=== PATIENT | female | born 1985 | race Caucasian/White ===

== ENCOUNTER 2018-08-23 14:00 | Emergency (ER) | payer OTHER ==
[2018-08-23 14:44] LABS: GLUCOSE, URINE (UA) NEGATIVE (NEGATIVE); KETONES,URINE (UA) 15 mg/dL (NEGATIVE); LEUKOCYTE ESTERASE, URINE SMALL (NEGATIVE); NITRITE,URINE NEGATIVE (NEGATIVE); OCCULT BLOOD,URINE NEGATIVE (NEGATIVE); PROTEIN,URINE NEGATIVE (NEGATIVE); UROBILINOGEN,URINE 0.2 (NORMAL) E.U./dL (NORMAL)
[2018-08-23 14:47] LABS: BILIRUBIN,URINE NEGATIVE (NEGATIVE); CLARITY,URINE HAZY (CLEAR); HCG UR QUAL NEGATIVE; ICTOTEST,URINE NEGATIVE
[2018-08-23 14:58] LABS: BACTERIA,URINE Many /HPF (None Seen); MUCUS,URINE Moderate Strands; RBC,URINE 0-5 /HPF (0-5); SQUAMOUS EPITHELIAL CELL,UR MANY Squamous (<= Few)
[2018-08-23] MEDS ORDERED: KETOROLAC 15 MG/ML VIAL IVP STA (15:47)
[2018-08-23] MEDS ORDERED: SODIUM CHLORIDE 0.9% 1,000 ML IV ONE (15:47)
[2018-08-23] MEDS ORDERED: ONDANSETRON 4 MG/2 ML VIAL IVP STA (15:47)
[2018-08-23 16:10] LABS: BASOPHILS % (AUTO) 0.5 %; EOSINOPHILS # (AUTO) 0.3 10^3/uL (0.0-0.7); EOSINOPHILS % (AUTO) 4.1 %; LYMPHOCYTES # (AUTO) 3.3 10^3/uL (1.5-3.5); LYMPHOCYTES % (AUTO) 39.8 %; MEAN CORPUSCULAR HEMOGLOBIN 34.5 pg (27.0-31.0); MEAN CORPUSCULAR HGB CONC 34.2 g/dL (32.0-36.0); MEAN CORPUSCULAR VOLUME 101.1 fL (81.0-99.0); MEAN PLATELET VOLUME 7.9 fL (7.9-10.8); MONOCYTES # (AUTO) 0.4 10^3/uL (0.0-1.0); MONOCYTES % (AUTO) 4.9 %; NEUTROPHILS # (AUTO) 4.2 10^3/uL (1.5-6.6); NEUTROPHILS % (AUTO) 50.7 %; PLT - PLATELET COUNT 234 10^3/uL (130-450); RED BLOOD COUNT 4.33 10^6/uL (4.20-5.40); RED CELL DISTRIBUTION WIDTH 12.5 % (12.0-15.0); WHITE BLOOD COUNT 8.3 x10^3/uL (4.8-10.8)
[2018-08-23] MEDS ORDERED: IOPAMIDOL-300 100 ML VIAL ONE (16:12)
[2018-08-23 16:25] LABS: ALBUMIN 4.8 g/dL (3.2-5.5); ALBUMIN/GLOBULIN RATIO 1.5 (1.0-2.2); BILIRUBIN,TOTAL 0.6 mg/dL (0.2-1.0); CALCIUM 9.5 mg/dL (8.5-10.3); CREATININE 0.6 mg/dL (0.4-1.0)
--- NOTE | 2018-08-23 16:44 | ED Physician Documentation ---
PD HPI ABD PAIN - Stated complaint Stated Complaint: AB/LOW BACK PX - Chief complaint Chief Complaint: Abd Pain - Additional information Additional information: 33-year-old female presents the emergency department with complaints of sharp crampy lower abdominal pain which started early this morning. The pain radiates into her back. There is no localized area of pain. The patient denies upper abdominal pain. The patient denies nausea, vomiting, dysuria, flank pain, vaginal discharge or vaginal bleeding. Symptoms are described as moderate. No other associated symptoms. No triggering factors. No relieving factors Review of Systems Constitutional: denies: Fever, Chills, Fatigue Eyes: denies: Discharge Ears: denies: Ear pain Nose: denies: Congestion Throat: denies: Sore throat Cardiac: denies: Chest pain / pressure Respiratory: denies: Dyspnea GI: reports: Abdominal Pain. denies: Vomiting, Diarrhea : denies: Dysuria Skin: denies: Rash Musculoskeletal: denies: Neck pain Neurologic: denies: Generalized weakness Psychiatric: denies: Depressed PD PAST MEDICAL HISTORY - Present Medications Home Medications: Ambulatory Orders Medication Instructions Recorded Confirmed Ondansetron HCl [Zofran] 4 mg PO Q6HR PRN #30 tablet 08/23/18 - Allergies Allergies/Adverse Reactions: Allergies Allergy/AdvReac Type Severity Reaction Status Date / Time No Known Drug Allergies Allergy Verified 08/23/18 14:14 PD ED PE NORMAL - General General: Alert and oriented X 3, No acute distress - HEENT HEENT: Atraumatic, PERRL, EOMI, Ears normal, Pharynx benign - Cardiac Cardiac: RRR, Strong equal pulses - Respiratory Respiratory: No respiratory distress - Abdomen Abdomen: Soft, Non distended, Other (Tenderness palpation in the lower abdomen, there is no rebound or peritoneal signs) - Derm Derm: Normal color - Extremities Extremities: No deformity - Neuro Neuro: Alert and oriented X 3, Normal speech - Psych Psych: Normal affect Results - Vitals Vitals: Vital Signs - 24 hr 08/23/18 14:14 Temperature 36.8 C Heart Rate 76 Respiratory 16 Rate Blood Pressure 121/89 H O2 Saturation 99 Oxygen O2 Source Room air - Labs Labs: Laboratory Tests 08/23/18 08/23/18 08/23/18 14:22 15:58 15:58 WBC 8.3 RBC 4.33 Hgb 15.0 Hct 43.8 MCV 101.1 H MCH 34.5 H MCHC 34.2 RDW 12.5 Plt Count 234 MPV 7.9 Neut # (Auto) 4.2 Lymph # (Auto) 3.3 [place] # (Auto) 0.4 Eos # (Auto) 0.3 Baso # (Auto) 0.0 Absolute Nucleated RBC 0.00 Nucleated RBC % 0.0 Sodium 138 Potassium 3.7 Chloride 105 Carbon Dioxide 23 Anion Gap 10.0 BUN 11 Creatinine 0.6 Estimated GFR (MDRD) 114 Glucose 81 Calcium 9.5 Total Bilirubin 0.6 AST 17 ALT 18 Alkaline Phosphatase 32 L Total Protein 8.0 Albumin 4.8 Globulin 3.2 Albumin/Globulin Ratio 1.5 Lipase 36 Urine Color YELLOW Urine Clarity HAZY Urine pH 6.0 Ur Specific [place] >=1.030 H Urine Protein NEGATIVE Urine Glucose (UA) NEGATIVE Urine Ketones 15 H Urine Occult Blood NEGATIVE Urine Nitrite NEGATIVE Urine Bilirubin NEGATIVE Urine Urobilinogen 0.2 (NORMAL) Ur Leukocyte Esterase SMALL H Urine RBC 0-5 Urine WBC 4-5 Ur Squamous Epith Cells MANY Squamous H Urine Bacteria Many H Urine Mucus Moderate Strands Ur Microscopic Review INDICATED Urine Culture Comments NOT INDICATED Urine HCG, Qual NEGATIVE - Rads (name of study) US pelvic Radiology: Final report received, See rad report (IMPRESSION: 1. Negative contrast-enhanced CT of the abdomen and pelvis. No acute solid or hollow viscus organ abnormalities to account for the patient's presentation. 2. There is a small enhancing focus within segment 7 of the liver (image 11 series 3). This could represent a flash filling hemangioma. 3. There is right nephrolithiasis. No evidence of obstructing stone or hydronephrosis. ) PD MEDICAL DECISION MAKING - ED course ED course: On reevaluation the patient is resting comfortably and appears to be in no acute distress. Presently the patient appears appropriate for discharge with reevaluation as an outpatient. I recommended returning for any worsening or any concerns. Departure - Departure Disposition: 01 Home, Self Care Clinical Impression: Kidney stone, Liver hemangioma Abdominal pain Qualifiers: Abdominal location: unspecified location Qualified Code(s): R10.9 - Unspecified abdominal pain Condition: Good Instructions: Abdominal Pain, ED Stone Kidney Undescended No Sx Follow-Up: Sandra Hoang PA-C [Primary Care Provider] - Within 1 week Prescriptions: Ondansetron HCl [Zofran] 4 mg PO Q6HR PRN #30 tablet PRN Reason: Nausea / Vomiting Comments: Please return to the emergency department for worsening symptoms or any concerns
[2018-08-23] MEDS ORDERED: IOPAMIDOL-300 100 ML VIAL IVP ONE (16:58)
--- NOTE | 2018-08-23 17:32 | CT Report ---
Reason: lower abdominal pain Procedure Date: 08/23/2018 Accession Number: [id number] / [id number] Procedure: CT - Abdomen/Pelvis W CPT Code: FULL RESULT: EXAM: CT ABDOMEN AND PELVIS EXAM DATE: 08/23/2018 04:57 PM. CLINICAL HISTORY: Lower abdominal pain. COMPARISONS: None. TECHNIQUE: Routine helical CT imaging was performed through the abdomen and pelvis. IV contrast: ISOVUE 300 100mL. Enteric contrast: No. Reconstructions: Coronal and sagittal. In accordance with CT protocol optimization, one or more of the following dose reduction techniques were utilized for this exam: automated exposure control, adjustment of mA and/or KV based on patient size, or use of iterative reconstructive technique. FINDINGS: Lung Bases: Unremarkable. Liver: There is a small enhancing lesion within segment 7 of the liver. This probably represents a flash filling hemangioma. Gallbladder/Bile Ducts: Unremarkable. Spleen: Normal. Pancreas: Normal. Adrenal Glands: Normal. Kidneys: There is a small nonobstructing stone within the right kidney. There is no evidence of distal obstructing stone or hydronephrosis. Peritoneal Cavity/Bowel: No dilated or thick-walled bowel is seen. No intraperitoneal free air. There is trace free fluid within the pelvis. No enlarged mesenteric or retroperitoneal lymph nodes. The appendix is not definitely seen. There is no evidence of pericecal inflammation to indicate presence of acute appendicitis. Pelvic Organs: Normal. The bladder and visualized pelvic organs are within normal limits. Vasculature: No aneurysms or other significant abnormality. Bones: No significant abnormality. Other: None. IMPRESSION: 1. Negative contrast-enhanced CT of the abdomen and pelvis. No acute solid or hollow viscus organ abnormalities to account for the patient's presentation. 2. There is a small enhancing focus within segment 7 of the liver (image 11 series 3). This could represent a flash filling hemangioma. 3. There is right nephrolithiasis. No evidence of obstructing stone or hydronephrosis. RADIA
[2018-08-23 18:02] VITALS: BP 132/75
== END 2018-08-23 18:01 | disposition home or self-care (01) ==
LOC: ED 14:00
DX: N20.0 Calculus of kidney (principal); D18.03 Hemangioma of intra-abdominal structures; R10.30 Lower abdominal pain, unspecified
CPT/HCPCS: 36415; 74177; 80053; 81001; 81025; 83690; 85025; 96360; 96361; 99283; Q9967; 81003; 87086

== ENCOUNTER 2021-06-14 08:00 | Outpatient (CLI) | payer OTHER | END 2021-06-14 23:59 | LOC: LAB.N 08:00 | PROVIDERS: ATTEND Family Medicine | DX: U07.1 COVID-19 (principal) ==

== ENCOUNTER 2021-10-04 16:03 | Outpatient (CLI) | payer OTHER ==
[2021-10-04 16:21] LABS: HCT - HEMATOCRIT 45.5 % (37.0-47.0); HGB - HEMOGLOBIN 15.5 g/dL (12.0-16.0); MEAN CORPUSCULAR HEMOGLOBIN 35.3 pg (27.0-31.0); MEAN CORPUSCULAR HGB CONC 34.1 g/dL (32.0-36.0); MEAN CORPUSCULAR VOLUME 103.6 fL (81.0-99.0); MEAN PLATELET VOLUME 9.6 fL (7.9-10.8); NEUTROPHILS # (AUTO) 2.8 10^3/uL (1.5-6.6); NEUTROPHILS % (AUTO) 33.7 %; RED BLOOD COUNT 4.39 10^6/uL (4.20-5.40); RED CELL DISTRIBUTION WIDTH 12.3 % (12.0-15.0); WHITE BLOOD COUNT 8.4 x10^3/uL (4.8-10.8)
[2021-10-04 16:29] LABS: ALBUMIN 4.5 g/dL (3.2-5.5); ALBUMIN/GLOBULIN RATIO 1.4 (1.0-2.2); BILIRUBIN,TOTAL 0.4 mg/dL (0.2-1.0); CALCIUM 9.5 mg/dL (8.5-10.3); CREATININE 0.5 mg/dL (0.4-1.0); TOTAL PROTEIN 7.8 g/dL (6.7-8.2)
== END 2021-10-04 16:04 | disposition home or self-care (01) ==
LOC: LAB 16:03
PROVIDERS: ATTEND Internal Medicine Hematology & Oncology
DX: C50.919 Malignant neoplasm of unspecified site of unspecified female breast (principal)
CPT/HCPCS: 36415; 80053; 85027; 86300

== ENCOUNTER 2021-10-17 08:32 | Day surgery (SDC) | payer OTHER ==
[2021-10-17] MEDS ORDERED: CEFAZOLIN SODIUM IN 0.9 % NACL 2 GM/50 ML BAG IV ONE (08:47)
[2021-10-17] MEDS ORDERED: LACTATED RINGERS 1,000 ML IV ONE ×2 (08:59→10:42)
[2021-10-17 09:02] LABS: HCG UR QUAL NEGATIVE
[2021-10-17] MEDS ORDERED: PROPOFOL 500 MG/50 ML 500 MG/50 ML VIAL ONE (09:34)
[2021-10-17] MEDS ORDERED: MIDAZOLAM 2 MG/2 ML VIAL ONE (09:34)
--- NOTE | 2021-10-17 09:39 | ANESTHESIA ---
Pre-Anesthesia VS, & Labs - Diagnosis left breast cancer - Procedure portacath placement Vital Signs: Temp Pulse Resp BP Pulse Ox 36.8 C 90 16 121/79 100 10/17/21 08:48 10/17/21 08:48 10/17/21 08:48 10/17/21 08:48 10/17/21 08:48 Height: 5 ft 6 in Weight (kg): 63.2 kg Body Mass Index: 22.4 BMI Classification: Healthy weight - NPO >8 hours - Is Patient ?: No Home Medications and Allergies Home Medications: Ambulatory Orders [place] 1 tab PO DAILY 10/12/21 [place] 1 tab PO DAILY 10/12/21 Allergies/Adverse Reactions: Allergies Allergy/AdvReac Type Severity Reaction Status Date / Time No Known Drug Allergies Allergy Verified 08/23/18 14:14 Anes History & Medical History - Anesthetic History Anesthesia Complications: reports: No previous complications - Medical History Cardiovascular: reports: None Pulmonary: reports: None Gastrointestinal: reports: None Urinary: reports: None Musculoskeletal: reports: None Endocrine/Autoimmune: reports: None Skin: reports: None Smoking Status: Light tobacco smoker (cigars) History of Cancer?: Yes - Surgical History Eyes Ears Nose Throat (EENT): reports: Other (sinus surgery several years ago) Exam General: Alert, Oriented x3, Cooperative Dental: WNL Mouth Opening: Greater than 4 Fingerbreadths Neck Mobility: Normal Mallampati classification: II Thyromental Distance: greater than 6 cm Respiratory: Lungs clear Cardiovascular: Regular rate, Normal S1, Normal S2 Plan Anesthesia Type: General, Total IV Consent for Procedure(s) Verified and Reviewed: Yes Code Status: Attempt Resuscitation ASA classification: 2-Mild systemic disease Is this case an emergency?: No
[2021-10-17] MEDS ORDERED: LIDOCAINE 2%-EPI 1:100000 20 ML MDV ONE (09:42)
[2021-10-17] MEDS ORDERED: BUPIVACAINE 0.25% PF 10 ML VIAL ONE (09:42)
[2021-10-17] MEDS ORDERED: fentaNYL 100 MCG/2 ML VIAL ONE (09:56)
[2021-10-17] MEDS ORDERED: LIDOCAINE 2%-EPI 1:100000 20 ML MDV SUBQ ONE (10:29)
[2021-10-17] MEDS ORDERED: BUPIVACAINE 0.25% PF 30 ML VIAL SUBQ ONE (10:29)
--- NOTE | 2021-10-17 10:34 | OPERATIVE REPORT ---
Operative Report - General Procedure Date: 10/17/21 Planned Procedure: Right subclavian power port placement Pre-Op Diagnosis: Left breast cancer Procedure Performed: Right subclavian PowerPort placement Post Op Diagnosis: Left breast cancer - Procedure Note Primary Surgeon: Manuel Anesthesia Provider: GLORIA Erazo Anesthesia Technique: Local, MAC Pathology: None Estimated Blood Loss (mL): 5 Findings: Port in good position Complications: None apparent - Other Other Information/Narrative: After obtaining informed consent, the patient is brought to the operating room and placed in supine position on the operating table. Following successful induction of sedation with monitored anesthesia care and appropriate padding of all bony prominences, the left chest and neck were prepped and draped in the standard surgical fashion. A timeout was held per scope protocol. All elements of the surgical safety checklist were followed before, during, and after the procedure. Following infiltration with local anesthetic to create a field block, the right subclavian vein was accessed in the deltopectoral groove. The J-wire was gently placed into the vein. Fluoroscopy was used to confirm the position of the wire and in the subclavian vein. We anesthetized the existing healed scar in the area around it for placement of the port itself. An incision was created here and carried down through the skin and subcutaneous tissue. A pocket was created with blunt dissection. The port tubing was attached to the tunneling device and passed from the access site of the vein into the pocket. It was trimmed to an appropriate length and the port attached. The port was sewn into place in the pocket. The dilator and introducer were then passed over the J-wire that was in the subclavian vein. The J-wire and dilator were removed leaving only the introducer. The tubing was then passed through the introducer and the introducer cracked and removed per agricultural production engineer's directions. The port was then checked for function and flushed and jaime easily. Additional local anesthetic was applied to the chest wall. The port pocket was closed with interrupted Vicryl sutures and Monocryl stitches were placed in both skin incision sites. All sponge, needle, and instrument counts were correct at the conclusion of the case. Chest x-ray in the postanesthesia care unit revealed the port in good position in the superior vena cava without evidence of pneumothorax.
--- NOTE | 2021-10-17 11:20 | XRAY Report ---
PROCEDURE: OR Port-A-Cath INDICATIONS: Breast Cancer TECHNIQUE: Single intraoperative fluoroscopic spot image of the upper chest. COMPARISON: Chest radiographs 10/17/[address] 10/11/2021 FINDINGS: Single spot fluoroscopic images demonstrates a catheter projecting over the right subclavian vein and superior vena cava. The tip is not included in the [id number] of this image. IMPRESSION: Intraoperative image from right subclavian port placement. The catheter tip is not well visualized. Reviewed by: Maulik Grewal MD on 10/17/2021 11:19 AM PDT Approved by: Maulik Grewal MD on 10/17/2021 11:19 AM PDT Station ID: [id number]
[2021-10-17 11:22] VITALS: BP 118/70
--- NOTE | 2021-10-17 13:02 | XRAY Report ---
PROCEDURE: Post Port Placement 1V CXR INDICATIONS: RIGHT PORT TECHNIQUE: One view of the chest was acquired. COMPARISON: CT dated 10/11/2021 and radiograph dated 09/16/2014 FINDINGS: Surgical changes and devices: Interval placement of right-sided tunneled port device with the distal tip projecting over the mid SVC. Lungs and pleura: No pleural effusions or pneumothorax. The upper most margin of the bilateral lung apices have been excluded off the [id number]. Lungs are otherwise clear. Mediastinum: Mediastinal contours appear normal. Heart size is normal. Bones and chest wall: No suspicious bony lesions. Overlying soft tissues appear unremarkable. IMPRESSION: Interval placement of right-sided tunneled port device with distal tip projecting over the mid SVC. N o acute cardiopulmonary abnormalities. No pneumothorax. Reviewed by: Blas Cornell MD on 10/17/2021 1:01 PM PDT Approved by: lBas Cornell MD on 10/17/2021 1:01 PM PDT Station ID: [id number]
--- NOTE | 2021-10-17 14:17 | ANESTHESIA POST OP EVALUATION ---
Anesthesia Post Eval - Post Anesthesia Eval Vitals: Last Vital Signs Temp 37.0 C 10/17/21 11:20 Pulse 84 10/17/21 11:20 Resp 14 10/17/21 11:20 BP 118/70 10/17/21 11:20 Pulse Ox 97 10/17/21 11:20 CV Function Including HR & BP: Stable Pain Control: Satisfactory Nausea & Vomiting: Negative Mental Status: Baseline Respiratory Status: Airway Patent Hydration Status: Satisfactory Anesthesia Complications: None
== END 2021-10-17 08:33 | disposition home or self-care (01) ==
LOC: SDS 08:32
PROVIDERS: ATTEND Surgery
DX: C50.912 Malignant neoplasm of unspecified site of left female breast (principal); F17.290 Nicotine dependence, other tobacco product, uncomplicated
CPT/HCPCS: 81025

== ENCOUNTER 2021-10-19 08:48 | Outpatient (CLI) | payer OTHER ==
--- NOTE | 2021-10-19 17:15 | Nuclear Medicine Report ---
PROCEDURE: Bone Whole Body INDICATIONS: BREAST CA RADIOPHARMACEUTICAL: 26.7 mCi Tc-99m MDP IV. TECHNIQUE: Delayed whole-body scintigrams were obtained approximately 3-4 hours after intravenous injection of r adiotracer. Anterior and posterior views were acquired from vertex to feet. Additional left and rig ht oblique views of the calvarium were obtained. COMPARISON: None available. FINDINGS: No areas of abnormal radiotracer uptake identified in the osseous skeleton. No areas of ph otopenia identified in the osseous skeleton. No abnormal soft tissue uptake. Activity kidneys are nor mal and symmetric. IMPRESSION: No scintigraphic evidence of osseous metastatic disease. Reviewed by: Tara Griffin MD, PhD on 10/19/2021 5:14 PM PDT Approved by: Tara Griffin MD, PhD on 10/19/2021 5:14 PM PDT Station ID: [id number]
== END 2021-10-19 08:49 | disposition home or self-care (01) ==
LOC: DI 08:48
PROVIDERS: ATTEND Internal Medicine Hematology & Oncology
DX: C50.812 Malignant neoplasm of overlapping sites of left female breast (principal)
CPT/HCPCS: 78306

== ENCOUNTER 2021-10-21 09:41 | Outpatient (CLI) | payer OTHER ==
--- NOTE | 2021-10-21 11:54 | Nuclear Medicine Report ---
PROCEDURE: MUGA Cardiac Imaging INDICATIONS: BREAST CA RADIOPHARMACEUTICAL: 25.3 mCi Tc-99m labeled autologous red cells IV. TECHNIQUE: After intravenous administration of autologous labeled WBC, INDONESIAN views of the chest were obtained. A region of interest was drawn around the left ventricle to calculate left ventricle ejection fraction. COMPARISON: None available. FINDINGS: The heart and great vessels are of normal size and configuration. The left ventricle contracts suresh lly, with left ventricle ejection fraction of 56%. Normal ejection fractions for this study are abov e 55%. A drop from baseline ejection fraction of greater than 10 percentage points or to below 45% o n follow-up studies may be considered significant. IMPRESSION: Normal left ventricular ejection fraction of 56%. Reviewed by: Tara Griffin MD, PhD on 10/21/2021 11:52 AM PDT Approved by: Tara Griffin MD, PhD on 10/21/2021 11:52 AM PDT Station ID: [id number]
== END 2021-10-21 09:42 | disposition home or self-care (01) ==
LOC: DI 09:41
PROVIDERS: ATTEND Internal Medicine Hematology & Oncology
DX: C50.812 Malignant neoplasm of overlapping sites of left female breast (principal)
CPT/HCPCS: 78803; A9512; A9538

== ENCOUNTER 2022-02-15 14:38 | Outpatient (CLI) | payer OTHER | END 2022-02-15 14:39 | disposition EMS.NT | LOC: EMS 14:38 | DX: R11.2 Nausea with vomiting, unspecified (principal); R10.9 Unspecified abdominal pain ==

== ENCOUNTER 2022-04-10 07:52 | Day surgery (SDC) | payer OTHER ==
[2022-04-10] MEDS ORDERED: LACTATED RINGERS 1,000 ML IV ONE ×3 (08:17→17:09)
[2022-04-10 08:18] LABS: HCG UR QUAL NEGATIVE
[2022-04-10] MEDS ORDERED: CELECOXIB 100 MG CAPSULE PO ONE (08:39)
[2022-04-10] MEDS ORDERED: GABAPENTIN 400 MG CAPSULE ONE (08:39)
[2022-04-10] MEDS ORDERED: CEFAZOLIN 2G/50ML 0.9% NS 2 GM/50 ML BAG IV ONE (08:40)
[2022-04-10] MEDS ORDERED: ACETAMINOPHEN 500 MG TABLET PO ONE (08:40)
[2022-04-10] MEDS ORDERED: lidocaine 1% 20 ML MDV ONE (08:49)
[2022-04-10] MEDS ORDERED: fentaNYL 100 MCG/2 ML VIAL ONE ×3 (09:48→13:17)
[2022-04-10] MEDS ORDERED: MIDAZOLAM 2 MG/2 ML VIAL ONE (09:48)
[2022-04-10] MEDS ORDERED: PROPOFOL 200 MG/20 ML VIAL IVP ONE (09:48)
--- NOTE | 2022-04-10 09:51 | ANESTHESIA ---
Pre-Anesthesia VS, & Labs - Diagnosis inflammatory breast cancer - Procedure left modified radical mastectomy Vital Signs: Temp Pulse Resp BP Pulse Ox O2 Flow Rate 36.5 C 89 16 106/71 100 0 04/10/22 08:17 04/10/22 08:17 04/10/22 08:17 04/10/22 08:17 04/10/22 08:17 04/10/22 08:17 Height: 5 ft 6 in Weight (kg): 58.6 kg Body Mass Index: 20.8 BMI Classification: Normal - NPO >8 hours - Is Patient ?: No Home Medications and Allergies Diphenoxylate/Atropine [Lomotil] 2 each PO Q6HR 02/28/22 Allergies/Adverse Reactions: Allergies Allergy/AdvReac Type Severity Reaction Status Date / Time No Known Drug Allergies Allergy Verified 04/10/22 08:44 Anes History & Medical History - Anesthetic History Anesthesia Complications: reports: No previous complications - Medical History Cardiovascular: reports: None Pulmonary: reports: None Gastrointestinal: reports: None Urinary: reports: None Musculoskeletal: reports: None Endocrine/Autoimmune: reports: None Skin: reports: None Smoking Status: Light tobacco smoker (cigars) History of Cancer?: Yes - Surgical History Eyes Ears Nose Throat (EENT): reports: Other Exam General: Alert, Oriented x3 Dental: WNL Mouth Opening: Greater than 4 Fingerbreadths Neck Mobility: Normal Mallampati classification: II Thyromental Distance: greater than 6 cm Respiratory: Lungs clear Cardiovascular: Regular rate, Normal S1, Normal S2 Plan Anesthesia Type: General Consent for Procedure(s) Verified and Reviewed: Yes Code Status: Attempt Resuscitation ASA classification: 3-Severe systemic disease Is this case an emergency?: No
[2022-04-10] MEDS ORDERED: ONDANSETRON 4 MG/2 ML VIAL IVP PRN ×2 (10:04→16:14)
[2022-04-10] MEDS ORDERED: fentaNYL 100 MCG/2 ML VIAL IVP PRN (10:04)
[2022-04-10] MEDS ORDERED: HYDROmorphone 0.5 MG/0.5 ML SYRINGE IVP PRN (10:04)
[2022-04-10] MEDS ORDERED: NALOXONE 0.4 MG/ML VIAL IVP PRN (10:04)
[2022-04-10] MEDS ORDERED: MORPHINE 2 MG/ML CARPUJECT IVP PRN (10:04)
[2022-04-10] MEDS ORDERED: ATROPINE ABBOJECT 1 MG/10 ML SYRINGE IVP PRN (10:04)
[2022-04-10] MEDS ORDERED: ePHEDrine 50 MG/ML VIAL IVP PRN (10:04)
[2022-04-10] MEDS ORDERED: LIDOCAINE MPF 2%-EPI 1:200000 20 ML VIAL ONE (10:11)
[2022-04-10] MEDS ORDERED: BUPIVACAINE 0.5% PF 30 ML VIAL ONE (10:11)
[2022-04-10] MEDS ORDERED: LACTATED RINGERS 1,000 ML IV SCH (11:00)
[2022-04-10] MEDS ORDERED: ONDANSETRON 4 MG/2 ML VIAL ONE ×3 (11:03→17:15)
[2022-04-10] MEDS ORDERED: ePHEDrine 50 MG/ML VIAL IVP ONE (11:03)
[2022-04-10] MEDS ORDERED: DEXAMETHASONE 4 MG/ML VIAL ONE ×2 (11:03→15:34)
[2022-04-10] MEDS ORDERED: BUPIVACAINE 0.5% PF 30 ML VIAL SUBQ ONE ×2 (11:34→16:00)
[2022-04-10] MEDS ORDERED: LIDOCAINE MPF 2%-EPI 1:200000 20 ML VIAL SUBQ ONE ×2 (11:35→16:00)
[2022-04-10] MEDS ORDERED: ceFAZolin 1 GM VIAL ONE (13:35)
[2022-04-10] MEDS ORDERED: KETOROLAC 30 MG/ML VIAL ONE (14:58)
[2022-04-10] MEDS ORDERED: ACETAMINOPHEN 325 MG TABLET PO PRN (16:14)
[2022-04-10] MEDS ORDERED: oxyCODONE 5 MG TABLET PO PRN (16:14)
[2022-04-10] MEDS ORDERED: IBUPROFEN 600 MG TABLET PO PRN (16:14)
--- NOTE | 2022-04-10 16:19 | OPERATIVE REPORT ---
Operative Report - General Procedure Date: 04/10/22 Planned Procedure: Right simple mastectomy, left modified radical mastectomy Pre-Op Diagnosis: Left-sided invasive ductal carcinoma, T2N1, status post neoadjuvant chemoth Procedure Performed: Right simple mastectomy, left modified radical mastectomy Post Op Diagnosis: Left-sided invasive ductal carcinoma, T2N1, status post neoadjuvant chemoth - Procedure Note Primary Surgeon: Dr. Veda Hassan Anesthesia Technique: General LMA, Local Pathology: 1. Right breast, short superior, long lateral 2. Left breast, short superior, long lateral 3. Left axillary contents, previously biopsied lymph node clip present and marked with stitch Estimated Blood Loss (mL): 200 Drain/Tube Type: Eric King round drain (x2 (Right breast, left breast and axilla)) Indications: In September of this year, the patient was diagnosed with invasive ductal carcinoma of the left breast, T2 N1. She has completed neoadjuvant chemotherapy. She was seen and evaluated in the clinic where we discussed the risks, benefits, and alternatives of mastectomy. I recommended mastectomy given the size and location of the patient's lesion, and the previous description concerning for inflammatory breast cancer. She also would like to have a mastectomy on the right and plans for reconstruction in the long-term. We discussed the risks, benefits, and alternatives including bleeding, infection, wound healing complications, damage to surrounding structures, swelling in the arms, and the need for further surgeries or procedures. The patient voiced understanding, her questions were answered, and she wished to proceed. A consent was signed in clinic Findings: 1. right mastectomy 2. left mastectomy, including skin overlying lesion 3. left axillary contents, stitch placed at location clip was identified on x ray (clip represents previously biopsied ln, positive for ca) Complications: none - Other Other Information/Narrative: The patient was taken to the operating room and placed in the supine position. Preop antibiotics were given. ERAS medications were given. The patient was prepped and draped in the usual sterile fashion. A preop surgical timeout was performed. Attention was turned to the patient's right breast. An elliptical incision was made including the nipple areolar complex. Skin flaps were raised superiorly to the clavicle and inferiorly to the inframammary crease, medially to the sternum, and laterally to the anterior border of serratus the breast was then removed from the pectoral fascia from medial to lateral. Hemostasis was confirmed. A 7 Bulgarian RASHID drain was placed in the cavity due to its size. This was sewn into place using a 2-0 Vicryl suture. The deep dermal tissues were closed with 2-0 Vicryl in an interrupted fashion. The skin was closed with Ensorb subcuticular winifred and dermabond. Attention was turned to the patient's left breast. And elliptical incision was made including the nipple areolar complex and skin overlying the lesion in the 12 o'clock position. Skin flaps were raised superiorly to the clavicle and inferiorly to the inframammary crease, medially to the sternum, and laterally to the anterior border of serratus the breast was then removed from the pectoral fascia from medial to lateral. Hemostasis was confirmed. Then, attention was turned to the left axilla. An incision was made just inferior to the hairline. This incision was carried down to the axillary fascia which was incised. The thoracodorsal and long thoracic nerves were identified as was the axillary vein. The structures were carefully preserved. The lymph node contents of the axilla were dissected free from the structures and removed and mass. These were sent to radiology labeled left axillary contents. A clip was identified representing the previously biopsied lymph node which did show cancer prior to chemotherapy. The location of this clip was identified in the operating room and tagged with a suture. The specimen was then sent to pathology. A 7 Bulgarian RASHID drain was placed on the left in the cavity due to its size. This was sewn into place using a 2-0 Vicryl suture. The deep dermal tissues were closed with 2-0 Vicryl in an interrupted fashion. The skin was closed with Ensorb subcuticular winifred and dermabond. Skin glue was placed over all incisions. The patient tolerated the procedure well. There were no complications. She was extubated in the operating room and transferred to the recovery room in stable condition.
--- NOTE | 2022-04-10 17:20 | ANESTHESIA POST OP EVALUATION ---
Anesthesia Post Eval - Post Anesthesia Eval Vitals: Last Vital Signs Temp 37.7 C 04/10/22 17:05 Pulse 101 H 04/10/22 17:05 Resp 20 04/10/22 17:05 BP 124/66 04/10/22 17:05 Pulse Ox 93 04/10/22 17:05 O2 Flow Rate 0 04/10/22 08:17 CV Function Including HR & BP: Stable Pain Control: Satisfactory Nausea & Vomiting: Negative Mental Status: Baseline Respiratory Status: Airway Patent Hydration Status: Satisfactory Anesthesia Complications: None
[2022-04-10 22:11] VITALS: BP 118/62
--- NOTE | 2022-04-17 10:23 | Ultrasound Report ---
ULTRASOUND OF LEFT AXILLA: 04/10/2022 CLINICAL: Pre op wire localization with ultrasound. Comparison is made to exams dated: 02/22/2022 breast MRI, 09/16/2021 breast MRI - [facility], 022 ultrasound biopsy, 09/02/2021 ultrasound biopsy, 09/02/2021 mammogram - [facility], and ultrasound - [facility]. Color flow ultrasound of the left axilla was performed. Castillo scale images of the real-time examinati on were reviewed. Small non enlarged lymph node were noted in the the left axilla. The previously placed biopsy clip w as not identified by ultrasound. Ultrasoud localization was cancelled after consultation with the noah diego. During surgical excision two specimens whe obtained. The second specimen contained the axillaty clip and this was localized on the grid for pathologic identification. IMPRESSION: KNOWN BIOPSY PROVEN MALIGNANCY Ultrasound wire localization cancelled as clip cound not be seen. The clip was localized on the surgi danilo specimen. This exam was interpreted at Station ID: [id number]. Electronically Signed By: Pino Greco M.D. mf/:04/14/2022 15:56:25 Ultrasound BI-RADS: 6 Known biopsy proven malignancy BI-RADS CATEGORY: (6) - 6 Unspecified - other recall n/a LATERALITY: (B)
== END 2022-04-10 19:25 | disposition home or self-care (01) ==
LOC: SDS 07:52 → MS2 07:52 → MS3 16:14 → SDS 19:25
PROVIDERS: ATTEND Surgery
PROC: 07B60ZX Excision of Left Axillary Lymphatic, Open Approach, Diagnostic (ICD-10-PCS; 2022-04-10)
PROC: 0HTT0ZZ Resection of Right Breast, Open Approach (ICD-10-PCS; principal; 2022-04-10 10:30)
PROC: 0HTU0ZZ Resection of Left Breast, Open Approach (ICD-10-PCS; 2022-04-10 10:30)
DX: C50.912 Malignant neoplasm of unspecified site of left female breast (principal); C77.3 Secondary and unspecified malignant neoplasm of axilla and upper limb lymph nodes; F17.290 Nicotine dependence, other tobacco product, uncomplicated; Z17.0 Estrogen receptor positive status [ER+]; Z32.02 Encounter for pregnancy test, result negative; Z80.3 Family history of malignant neoplasm of breast; Z92.21 Personal history of antineoplastic chemotherapy
CPT/HCPCS: 19303; 19307; 76882; 81025; A9270; J0690; J7120

== ENCOUNTER 2022-07-12 19:58 | Emergency (ER) | payer OTHER ==
--- NOTE | 2022-07-12 20:07 | ED Physician Documentation ---
PD HPI CHEST PAIN - Stated complaint Stated Complaint: CHEST PAIN - Chief complaint Chief Complaint: Cardiac - History obtained from History obtained from: Patient - History of Present Illness Associated symptoms: Cough (mild , nonproductive). No: Shortness of air, Palpitations - Additional information Additional information: HPI from patient. Patient complains of midline chest pain, described as sensation of heaviness. The chest pain was of gradual onset 3 days ago without inciting event. Pain is constant. It is worse with palpation as well as movement; there is also a mild pleuritic component. There are no ameliorating factors. Patient's past medical history includes left breast cancer with bilateral mastectomy April 2022. She completed her last radiation treatment 2 weeks ago, and completed chemotherapy February 2022. She denies history of similar chest pain. She was seen by her oncologist 2 days ago, had outpatient blood tests; patient does not know which test were performed or the results. Patient has had no improvement with ibuprofen as well as oxycodone. 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 Other Past Medical History: radiation-induced colitis - Past Surgical History Past Surgical History: Yes /FACILITY SALES AND ADMIN: Mastectomy (bilateral) HEENT: Other - Present Medications Home Medications: Ambulatory Orders Medication Instructions Recorded Confirmed Diphenoxylate/Atropine [Lomotil] 2 each PO Q6HR 02/28/22 07/12/22 oxyCODONE [Roxicodone] 5 mg PO Q4H PRN #15 tablet 04/10/22 07/12/22 Prochlorperazine Maleate 10 mg PO Q4HR PRN 04/17/22 07/12/22 [Compazine] Tamoxifen Citrate 20 mg PO DAILY 07/11/22 07/12/22 Doxycycline [Vibramycin] 100 mg PO BID #19 tablet 07/13/22 HYDROmorphone [Dilaudid] 2 - 4 mg PO Q4H PRN #14 tablet 07/13/22 - Allergies Allergies/Adverse Reactions: Allergies Allergy/AdvReac Type Severity Reaction Status Date / Time No Known Drug Allergies Allergy Verified 07/12/22 20:02 - Social History Smoking Status: Light tobacco smoker (cigars) PD ED PE NORMAL - Vitals Vital signs reviewed: Yes - General General: Alert and oriented X 3, Well developed/nourished, Other (appears to be in moderate painful distress, crying at times during H+P) - HEENT HEENT: Moist mucous membranes - Neck Neck: Supple, no meningeal sign - Cardiac Cardiac: No murmur - Respiratory Respiratory: No respiratory distress, Clear bilaterally - Abdomen Abdomen: Soft, Non distended PD ED PE EXPANDED - Cardiac Cardiac: Tachy, Regular Rhythm - Abdomen Abdomen: Tender to palpation (diffuse TTP, more pronounced across upper abdomen). No: Rebound, Guarding Results - Vitals Vitals: Vital Signs - 24 hr 07/12/22 07/12/22 07/12/22 20:02 20:17 20:18 Temperature 37.0 C Heart Rate 114 H 109 H Respiratory 24 16 Rate Blood Pressure 124/75 112/77 Blood Pressure 112/77 [Right] O2 Saturation 98 100 07/12/22 07/12/22 07/12/22 20:37 21:04 22:30 Temperature Heart Rate 107 H 108 H 105 H Respiratory 22 19 16 Rate Blood Pressure 109/72 111/74 111/74 Blood Pressure [Right] O2 Saturation 100 99 97 07/12/22 07/13/22 07/13/22 23:44 01:00 01:48 Temperature 36.9 C Heart Rate 104 H 100 108 H Respiratory 13 21 25 H Rate Blood Pressure 99/74 105/69 108/83 H Blood Pressure [Right] O2 Saturation 99 96 98 07/13/22 02:38 Temperature 36.8 C Heart Rate 108 H Respiratory 19 Rate Blood Pressure 111/71 Blood Pressure [Right] O2 Saturation 97 Oxygen O2 Source Room air - Labs Labs: Microbiology 07/13/22 02:25 Wound Culture - Preliminary Abscess Laboratory Tests 07/12/22 07/12/22 07/12/22 20:12 20:12 20:12 WBC 7.3 RBC 3.99 L Hgb 13.5 Hct 39.3 MCV 98.5 MCH 33.8 H MCHC 34.4 RDW 11.9 L Plt Count 210 MPV 9.4 Neut # (Auto) 5.3 Lymph # (Auto) 1.1 L [place] # (Auto) 0.8 Eos # (Auto) 0.2 Baso # (Auto) 0.0 Absolute Nucleated RBC 0.00 Nucleated RBC % 0.0 Sodium 141 Potassium 3.6 Chloride 102 Carbon Dioxide 24 Anion Gap 15.0 H BUN 9 Creatinine 0.5 Estimated GFR (MDRD) 137 Glucose 99 Calcium 10.7 H Total Bilirubin 0.5 AST 16 ALT 14 Alkaline Phosphatase 59 Troponin I High Sens 5.0 Total Protein 7.4 Albumin 3.9 Globulin 3.5 Albumin/Globulin Ratio 1.1 Lipase 36 Urine Color Urine Clarity Urine pH Ur Specific May Urine Protein Urine Glucose (UA) Urine Ketones Urine Occult Blood Urine Nitrite Urine Bilirubin Urine Urobilinogen Ur Leukocyte Esterase Urine RBC Urine WBC Ur Squamous Epith Cells Urine Bacteria Urine Culture Comments 07/12/22 21:41 WBC RBC Hgb Hct MCV MCH MCHC RDW Plt Count MPV Neut # (Auto) Lymph # (Auto) [place] # (Auto) Eos # (Auto) Baso # (Auto) Absolute Nucleated RBC Nucleated RBC % Sodium Potassium Chloride Carbon Dioxide Anion Gap BUN Creatinine Estimated GFR (MDRD) Glucose Calcium Total Bilirubin AST ALT Alkaline Phosphatase Troponin I High Sens Total Protein Albumin Globulin Albumin/Globulin Ratio Lipase Urine Color YELLOW Urine Clarity CLEAR Urine pH 7.0 Ur Specific May 1.010 Urine Protein NEGATIVE Urine Glucose (UA) NEGATIVE Urine Ketones NEGATIVE Urine Occult Blood NEGATIVE Urine Nitrite NEGATIVE Urine Bilirubin NEGATIVE Urine Urobilinogen 0.2 (NORMAL) Ur Leukocyte Esterase NEGATIVE Urine RBC 0-5 Urine WBC 0-3 Ur Squamous Epith Cells FEW Squamous Urine Bacteria Few Urine Culture Comments NOT INDICATED - Rads (name of study) chest xray Radiology: Prelim report reviewed, See rad report CTA chest Radiology: Prelim report reviewed, See rad report CT A/P with IV contrast Radiology: Prelim report reviewed, See rad report Procedures - Abscess I&D (location) Chest left Anterior Preparation: Chlorhexadine, Lidocaine 1% Incision: Needle aspiration, Purulent drainage, Culture obtained Other: Pt tolerated well, Antibiotic prescribed PD Medical Decision Making - ED course Complexity details: reviewed old records, reviewed results, re-evaluated patient, considered differential, d/w patient ED course: Tests ordered and results reviewed by me: CBC, ER abdominal panel, high- sensitivity troponin, EKG, chest x-ray, CTA of the chest, CT abdomen and pelvis with intravenous contrast. Her chief complaint on presentation is midline low chest pain, although she is unexpectedly diffusely tender on the abdominal exam; patient was surprised by this as well and was unaware of abdominal tenderness. The CTA of the chest is interpreted by the radiologist as "1 no evidence of pulmonary embolism 2 no acute airspace consolidation". The CT of the abdomen/pelvis has no concerning abnormalities; incidental note is made of diverticulosis without evidence of diverticulitis as well as a right intrarenal calculus. There are no concerning findings on the blood tests; her white blood cell count is normal, as is her high-sensitivity troponin. She is given 1 mg of Dilaudid intravenously as well as 4 mg of IV Zofran. On reevaluation, she appears comfortable, drowsy but awakens easily to voice and responds appropriately and accurately. She reports feeling much improved.I discussed the results of the test with the patient. He was only on this reevaluation that she asks about a tender, painful focal swelling on her left chest wall. She had not mentioned this on the initial H&P, and the area of concern was covered by her gown at the time of my initial evaluation. With the prompting raised by her question about this lesion, I then looked at the lower left anterior chest and there is a 3 to 4 cm diameter swelling that is erythemat ous and fluctuant; it is exquisitely tender to palpation. I asked when she first noticed this and she says it began approximately 3 days ago. I asked if the tenderness elicited with palpation of this lesion reproduces the symptoms for which he presented tonight, and she is uncertain that this completely reproduces her symptoms. I reviewed the CT of the chest and the abdomen, and I do note significant swelling on the studies that correlates with the area of concern on the exam. At this point, I recommended I+D of the lesion and she is agreeable to this. After sterile prep and drape, followed by local infiltration of 1% lidocaine without epinephrine, needle drainage is performed with a 23- gauge needle; 10 cc was withdrawn through this method. The first 8 cc withdrawn are translucent with a yellow/serous appearance; the last 2 cc appeared grossly to be purulent. The swelling was significantly reduced with this intervention, and since the majority of the fluid withdrawn appeared to be nonpurulent, I did not proceed to incision of the lesion. She was given 100 mg p.o. doxycycline. The fluid is sent for culture. Late in her ER stay, she had gradual recurrence of the chest pain and for this she is given another dose of intravenous Dilaudid, 0.5 mg which is repeated just prior to discharge (for a total of 2 mg IV Dilaudid during her ER stay). She is also given a second dose of 4 mg IV Zofran for gradual return of her nausea. Patient says she has an antinausea medication at home and she is comfortable taking this medication for her nausea, as that is a minor symptom tonight. However, given that she had no relief of her symptoms with oxycodone (patient says she has adequate amount of oxycodone remaining), I prescribed a short course of hydromorphone, electronically submitted to [facility] in [place]. A 10-day twice daily course of doxycycline is also electronically submitted to this pharmacy. Return precautions are discussed. Advised to follow-up with her primary care provider, next available appointment. I also advised her to take EITHER the hydromorphone OR the oxycodone (whichever seems more effective). I am prescribing a short course of short-acting opioid pain medication for this patient. 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 I have discussed that the opioids are for short term therapy only, and will not be refilled from the ED. Departure - Departure Disposition: Home, Self Care Clinical Impression: Chest wall abscess Chest pain Qualifiers: Chest pain type: unspecified Qualified Code(s): R07.9 - Chest pain, unspecified Condition: Good Instructions: ED Abdominal Pain Female Non-Specific Abdominal Pain, ED Abscess IandD, ED Chest Pain Atypical Unkn Cause Follow-Up: Sandra Hoang PA-C [Primary Care Provider] - Prescriptions: HYDROmorphone [Dilaudid] 2 - 4 mg PO Q4H PRN #14 tablet PRN Reason: Pain Doxycycline [Vibramycin] 100 mg PO BID #19 tablet Comments: There were no concerning or diagnostic findings on the results of tonight's blood tests, EKG, chest x-ray. Similarly, the CAT scan of your chest and abdomen had no concerning findings nor findings that would explain the symptoms you are having. However, the tenderness and swelling on the left chest wall is also noted on the CAT scan. A needle drainage was performed in the emergency department and the fluid removed appeared to have a small amount of pus and thus an antibiotic was given in the ER and a prescription for a 10-day course has been electronically submitted to [facility] in [place]. I have also electronically submitted a prescription for hydromorphone (strong narcotic/opiate pain medication) to the [facility] pharmacy. You should use either the hydromorphone or the oxycodone; do not take these medications within 6 hours of each other. Use whichever of the 2 seems to be more effective in controlling your pain. I am prescribing a short course of narcotic pain medication for you. These are potentially dangerous and addictive medications that should be used carefully. These medications may constipate you. Take an [id number] stool softener (docusate) twice daily with plenty of water while taking these medications. If you go 24 hours without a bowel movement, take [id number] miralax, per juan josé cordoba instructions. Do not drink or drive while taking these medications. If you received narcotic or sedating medications while in the emergency department, do not drive for 24 hours. Store this medication in a safe, secure place and out of reach of children. It is a violation of federal law to give or sell this medication to another person or to use in a manner other than prescribed. The ED will not refill narcotic prescriptions, including prescriptions lost or stolen. To dispose of unwanted medications: 1. [facility] at [address] in [place] has a medication drop box. They accept prescription medications (in pill form) Sunday through Sunday 9:00 a.m. to 5:00 p.m. 2. The [facility] [employer] accepts prescription medications (in pill form only) for disposal year round. Call for more information. 3. Contact the [facility] for the next [facility] sponsored prescription drug collection event. , [phone], or [phone]; Discharge Date/Time: 07/13/22 02:49
[2022-07-12 20:19] LABS: BASOPHILS % (AUTO) 0.3 %; EOSINOPHILS # (AUTO) 0.2 10^3/uL (0.0-0.7); EOSINOPHILS % (AUTO) 2.2 %; HCT - HEMATOCRIT 39.3 % (37.0-47.0); HGB - HEMOGLOBIN 13.5 g/dL (12.0-16.0); LYMPHOCYTES # (AUTO) 1.1 10^3/uL (1.5-3.5); LYMPHOCYTES % (AUTO) 14.4 %; MEAN CORPUSCULAR HEMOGLOBIN 33.8 pg (27.0-31.0); MEAN CORPUSCULAR HGB CONC 34.4 g/dL (32.0-36.0); MEAN CORPUSCULAR VOLUME 98.5 fL (81.0-99.0); MEAN PLATELET VOLUME 9.4 fL (7.9-10.8); MONOCYTES # (AUTO) 0.8 10^3/uL (0.0-1.0); MONOCYTES % (AUTO) 10.7 %; NEUTROPHILS # (AUTO) 5.3 10^3/uL (1.5-6.6); NEUTROPHILS % (AUTO) 72.3 %; PLT - PLATELET COUNT 210 10^3/uL (130-450); RED BLOOD COUNT 3.99 10^6/uL (4.20-5.40); RED CELL DISTRIBUTION WIDTH 11.9 % (12.0-15.0); WHITE BLOOD COUNT 7.3 x10^3/uL (4.8-10.8)
[2022-07-12] MEDS ORDERED: HYDROmorphone 1 MG/ML CARPUJECT IVP STA (20:29)
[2022-07-12] MEDS ORDERED: ONDANSETRON 4 MG/2 ML VIAL IVP STA (20:30)
[2022-07-12 20:32] LABS: ALBUMIN 3.9 g/dL (3.2-5.5); ALBUMIN/GLOBULIN RATIO 1.1 (1.0-2.2); BILIRUBIN,TOTAL 0.5 mg/dL (0.2-1.0); CALCIUM 10.7 mg/dL (8.5-10.3); CREATININE 0.5 mg/dL (0.4-1.0); POTASSIUM 3.6 mmol/L (3.5-5.0); TOTAL PROTEIN 7.4 g/dL (6.7-8.2)
--- NOTE | 2022-07-12 21:09 | XRAY Report ---
PROCEDURE: Chest 1 View X-Ray INDICATIONS: Chest pain TECHNIQUE: One view of the chest was acquired. COMPARISON: Chest x-ray 10/17/2021. FINDINGS: Surgical changes and devices: There is a right subclavian Port-A-Cath with the tip of the cavoatrial junction. Lungs and pleura: No pleural effusions or pneumothorax. Lungs are clear. Mediastinum: Mediastinal contours appear normal. Heart size is normal. Bones and chest wall: No suspicious bony lesions. Overlying soft tissues appear unremarkable. IMPRESSION: 1. No acute cardiopulmonary disease. Reviewed by: Suman Granados MD on 07/12/2022 9:07 PM PST Approved by: Suman Granados MD on 07/12/2022 9:07 PM PST Station ID: [id number]
[2022-07-12] MEDS ORDERED: iohexoL-300 100 ML VIAL ONE (21:22)
[2022-07-12 21:52] LABS: BILIRUBIN,URINE NEGATIVE (NEGATIVE); GLUCOSE, URINE (UA) NEGATIVE (NEGATIVE); KETONES,URINE (UA) NEGATIVE (NEGATIVE); LEUKOCYTE ESTERASE, URINE NEGATIVE (NEGATIVE); NITRITE,URINE NEGATIVE (NEGATIVE); OCCULT BLOOD,URINE NEGATIVE (NEGATIVE); PROTEIN,URINE NEGATIVE (NEGATIVE); UROBILINOGEN,URINE 0.2 (NORMAL) E.U./dL (NORMAL)
[2022-07-12 21:54] LABS: CLARITY,URINE CLEAR (CLEAR)
[2022-07-12 21:59] LABS: BACTERIA,URINE Few /HPF (None Seen); RBC,URINE 0-5 /HPF (0-5); SQUAMOUS EPITHELIAL CELL,UR FEW Squamous (<= Few); WBC,URINE 0-3 /HPF (0-5)
[2022-07-12] MEDS ORDERED: iohexoL-300 100 ML VIAL IVP ONE (22:14)
--- NOTE | 2022-07-12 23:11 | CT Report ---
PROCEDURE: ANGIO CHEST W/WO INDICATIONS: chest pain CONTRAST: Omni 300 100ml TECHNIQUE: After the administration of intravenous contrast, 2 mm axial images were acquired from the pulmonary apices to the posterior costophrenic angles during the arterial phase. In addition, 1 mm lung kernel and 5 mm soft tissue kernel reconstructions were performed. 3-dimensional coronal oblique maximum int ensity projection (MIP) reformats, 8 mm axial MIP, and 5 mm coronal and sagittal MPR reformats were t hen performed through the thorax. For radiation dose reduction, the following was used: automated exp osure control, adjustment of mA and/or kV according to patient size. COMPARISON: Concurrent CT abdomen pelvis. FINDINGS: Image quality: Excellent. Pulmonary arteries: Pulmonary arteries are normal in size, and demonstrate no intraluminal filling d efects to suggest central pulmonary embolism. Lower Neck: No lymphadenopathy by size criteria. Thyroid: Visualized thyroid demonstrates no discrete nodules. Axillae: No lymphadenopathy by size criteria. Chest Wall: Unremarkable. Bones: Visualized osseous structures demonstrate no suspicious lesions. Lungs and Airways: No acute consolidation. There is mild dependent atelectasis bilaterally. The tra barbara and central airways are patent. Pleura: No pneumothorax or pleural effusions. Heart: Heart size is normal. No pericardial effusion. Thoracic Vessels: The thoracic aorta is normal in size. Mediastinum and Naomie: No lymphadenopathy by size criteria. Esophagus: No wall thickening. No hiatal hernia. Abdomen: Visualized upper abdominal solid organs appear normal in the early arterial phase of enhanc ement. IMPRESSION: 1. No evidence of pulmonary embolism. 2. No acute airspace consolidation. Reviewed by: Suman Granados MD on 07/12/2022 11:10 PM [facility] Approved by: Suman Granados MD on 07/12/2022 11:10 PM PST Station ID: [id number]
--- NOTE | 2022-07-12 23:15 | CT Report ---
PROCEDURE: ABDOMEN/PELVIS W INDICATIONS: abdominal tenderness, diffuse but upper>lower CONTRAST: Omni 300 100ml TECHNIQUE: After the administration of intravenous contrast, 5 mm thick sections acquired from the diaphragms to the symphysis. 5 mm thick coronal and sagittal reformats were acquired. For radiation dose reducti on, the following was used: automated exposure control, adjustment of mA and/or kV according to jaimie ent size. COMPARISON: Concurrent CTA chest. FINDINGS: Image quality: Excellent. Lung bases:There is mild dependent atelectasis. Heart: Heart is normal in size. ABDOMEN: Liver: No mass lesion. Gallbladder: Within normal limits without calcified gallstones. Biliary ducts: No biliary ductal dilatation. Pancreas: Unremarkable. Spleen: Normal in size. Adrenal Glands: No adrenal nodules. Kidneys and Ureters: No hydronephrosis. There is a small nonobstructing right renal stone measuring up to 0.2 cm. Stomach and Bowel: Stomach, small bowel loops, and colon are normal in caliber and wall thickness. N o evidence of appendicitis. There is colonic diverticulosis without acute diverticulitis. Peritoneum: No abnormal intraperitoneal fluid. No free air. Ventral Wall: No hernia. Abdominal Nodes: No retroperitoneal or mesenteric adenopathy by size criteria. Vessels: Aorta and inferior vena cava are normal in size. PELVIS: Pelvic Organs: Uterus appears within normal size limits. Bladder: Unremarkable. Pelvic Nodes: No enlarged lymph nodes. Miscellaneous: No inguinal hernias. Bones: Visualized osseous structures demonstrate no suspicious lesions. IMPRESSION: 1. No definite acute intra-abdominal abnormality. 2. No evidence of appendicitis. 3. Colonic diverticulosis without acute diverticulitis. 4. Right nephrolithiasis without obstructive uropathy. Reviewed by: Suman Granados MD on 07/12/2022 11:14 PM PST Approved by: Suman Granados MD on 07/12/2022 11:14 PM PST Station ID: [id number]
[2022-07-13] MEDS ORDERED: DOXYCYCLINE 100 MG TABLET PO STA (01:01)
[2022-07-13] MEDS ORDERED: LIDOCAINE 2% 10 ML MDV SUBQ ONE (01:17)
[2022-07-13] MEDS ORDERED: LIDOCAINE 1% 2 ML VIAL SUBQ STA (01:43)
[2022-07-13] MEDS ORDERED: ONDANSETRON 4 MG/2 ML VIAL IVP STA (01:50)
[2022-07-13] MEDS ORDERED: HYDROmorphone 1 MG/ML CARPUJECT IVP STA ×2 (01:50→02:29)
[2022-07-13 02:40] VITALS: BP 111/71
== END 2022-07-13 02:49 | disposition home or self-care (01) ==
LOC: ED 19:58
DX: L02.213 Cutaneous abscess of chest wall (principal); F17.290 Nicotine dependence, other tobacco product, uncomplicated
CPT/HCPCS: 10060; 36415; 71045; 71275; 74177; 80053; 81001; 83690; 84484; 85025; 87070; 87181; 87205; 93005; 96374; 96376; 99284; 99285; A9270; J1170; Q9967; 87086

== ENCOUNTER 2023-08-16 14:04 | Emergency (ER) | payer OTHER ==
[2023-08-16] MEDS: SODIUM CHLORIDE 0.9% 1,000 ML IV STA (14:40)
[2023-08-16 14:51] LABS: BASOPHILS % (AUTO) 0.4 %; EOSINOPHILS # (AUTO) 0.2 10^3/uL (0.0-0.7); EOSINOPHILS % (AUTO) 3.6 %; HCT - HEMATOCRIT 37.2 % (37.0-47.0); HGB - HEMOGLOBIN 12.7 g/dL (12.0-16.0); LYMPHOCYTES # (AUTO) 2.7 10^3/uL (1.5-3.5); LYMPHOCYTES % (AUTO) 48.8 %; MEAN CORPUSCULAR HGB CONC 34.1 g/dL (32.0-36.0); MEAN CORPUSCULAR VOLUME 96.6 fL (81.0-99.0); MEAN PLATELET VOLUME 9.4 fL (7.9-10.8); MONOCYTES # (AUTO) 0.3 10^3/uL (0.0-1.0); MONOCYTES % (AUTO) 5.4 %; NEUTROPHILS # (AUTO) 2.3 10^3/uL (1.5-6.6); NEUTROPHILS % (AUTO) 41.6 %; PLT - PLATELET COUNT 205 10^3/uL (130-450); RED BLOOD COUNT 3.85 10^6/uL (4.20-5.40); RED CELL DISTRIBUTION WIDTH 12.1 % (12.0-15.0); WHITE BLOOD COUNT 5.5 x10^3/uL (4.8-10.8)
--- NOTE | 2023-08-16 14:59 | ED Physician Documentation ---
History of Present Illness - Stated complaint Stated Complaint: DIZZY,SHAKING,NAUSEA - Chief complaint Chief Complaint: Neuro - History obtained from History obtained from: Patient - Additonal information Additional information: The patient comes to the emergency department chief complaint of generalized weakness and fatigue over the last week or so. She has chronic diarrhea and then was treated for breast cancer about 2 years ago and states things have never been the same since. She received chemo and radiation for this and still follows with oncology. She just saw her oncologist about 3 days ago and her oncologist referred her to a GI specialist because of the diarrhea. The patient states that she finally decided to come to the emergency department today because she has been drinking plenty of water, but just feels so weak and tired. 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 She l eft work early to come. She states that she feels her thought processes are slow and like she just does not mentating clearly. She denies any new medications. No alcohol or drugs. No head injury. No chest pain or shortness of breath. No nausea or vomiting. 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: Mastectomy HEENT: Other - Present Medications Home Medications: Ambulatory Orders Medication Instructions Recorded Confirmed Diphenoxylate/Atropine [Lomotil] 2 each PO Q6HR 02/28/22 07/12/22 oxyCODONE [Roxicodone] 5 mg PO Q4H PRN #15 tablet 04/10/22 07/12/22 Prochlorperazine Maleate 10 mg PO Q4HR PRN 04/17/22 07/12/22 [Compazine] Tamoxifen Citrate 20 mg PO DAILY 07/11/22 07/12/22 Doxycycline [Vibramycin] 100 mg PO BID #19 tablet 07/13/22 HYDROmorphone [Dilaudid] 2 - 4 mg PO Q4H PRN #14 tablet 07/13/22 Anastrozole 1 mg PO DAILY 08/08/22 08/08/22 - Allergies Allergies/Adverse Reactions: Allergies Allergy/AdvReac Type Severity Reaction Status Date / Time No Known Drug Allergies Allergy Verified 08/16/23 14:27 - Social History Does the pt smoke?: Yes Smoking Status: Current every day smoker Does the pt drink ETOH?: No Does the pt have substance abuse?: No - Immunizations Immunizations are current?: Yes - POLST Patient has POLST: No PD ED PE NORMAL - Vitals Vital signs reviewed: Yes - General General: Alert and oriented X 3, No acute distress, Well developed/nourished - HEENT HEENT: Atraumatic, PERRL, EOMI, Moist mucous membranes - Neck Neck: Supple, no meningeal sign - Cardiac Cardiac: RRR, No murmur - Respiratory Respiratory: No respiratory distress, Clear bilaterally - Abdomen Abdomen: Soft, Non tender, Non distended - Derm Derm: Normal color, Warm and dry, No rash - Extremities Extremities: No deformity, No edema, No calf tenderness / cord - Neuro Neuro: Alert and oriented X 3 - Psych Psych: Normal mood, Normal affect Results - Vitals Vitals: Oxygen O2 Source Room air - Labs Labs: Laboratory Tests 08/16/23 08/16/23 08/16/23 14:34 14:41 14:41 WBC 5.5 RBC 3.85 L Hgb 12.7 Hct 37.2 MCV 96.6 MCH 33.0 H MCHC 34.1 RDW 12.1 Plt Count 205 MPV 9.4 Neut # (Auto) 2.3 Lymph # (Auto) 2.7 [place] # (Auto) 0.3 Eos # (Auto) 0.2 Baso # (Auto) 0.0 Absolute Nucleated RBC 0.00 Nucleated RBC % 0.0 Sodium 138 Potassium 3.6 Chloride 103 Carbon Dioxide 28 Anion Gap 7.0 BUN 11 Creatinine 0.5 L Estimated GFR (MDRD) 137 Glucose 95 Lactic Acid Calcium 10.3 Total Bilirubin 0.5 AST 12 ALT 10 Alkaline Phosphatase 49 Troponin I High Sens Total Protein 7.1 Albumin 4.8 Globulin 2.3 Albumin/Globulin Ratio 2.1 Lipase 22 TSH 1.57 Serum HCG, Qual 08/16/23 08/16/23 08/16/23 14:41 14:41 14:41 WBC RBC Hgb Hct MCV MCH MCHC RDW Plt Count MPV Neut # (Auto) Lymph # (Auto) [place] # (Auto) Eos # (Auto) Baso # (Auto) Absolute Nucleated RBC Nucleated RBC % Sodium Potassium Chloride Carbon Dioxide Anion Gap BUN Creatinine Estimated GFR (MDRD) Glucose Lactic Acid 0.7 Calcium Total Bilirubin AST ALT Alkaline Phosphatase Troponin I High Sens < 2.3 L Total Protein Albumin Globulin Albumin/Globulin Ratio Lipase TSH Serum HCG, Qual NEGATIVE PD Medical Decision Making - ED course Complexity details: reviewed results, re-evaluated patient, considered differential, d/w patient ED course: The patient was treated symptomatically with IV fluid. Patient was feeling little better but still little bit lightheaded. Her vital signs look very good. I discussed with her that perhaps what she was doing here, she can sit on a stool to give herself a little break and help avoid the lightheadedness. She should also follow-up with her primary doctor to be reevaluated in the next couple of weeks. We have discussed getting plenty of water a good sleep. We discussed the usual indications for return. Departure - Departure Disposition: 01 Home, Self Care Clinical Impression: Dehydration Fatigue Qualifiers: Fatigue type: other Qualified Code(s): R53.83 - Other fatigue Condition: Stable Instructions: ED Dehydration, ED Weakness UKO Comments: Your laboratory studies look good, does your monitor reading. It is not clear exactly what has caused your fatigue, though it appears you were somewhat dehydrated today and this probably contributed. It is easy to get busy at work and not drink enough fluids, so please make sure you have a large container of water to keep sipping throughout the day. Your goal should be 8 to 10 cups worth of water per day. It is advisable that you make a follow-up appointment with your primary doctor to follow-up this emergency department appointment. You may want to consider having vitamin levels checked to make sure you not deficient in the B vitamins or vitamin D. Deficiencies in any of these can also cause fatigue and a sense of "brain fog". Your CT today did not show any thyroid abnormality structurally. When you are at work, you can help prevent episodes of fatigue on your feet by sitting on a stool you do your clients hair. Please also be sure you are getting plenty of nutrient dense foods like fresh fruits and vegetables and whole grains. Forms: PCP List Discharge Date/Time: 08/16/23 17:57
[2023-08-16 15:04] LABS: ALBUMIN 4.8 g/dL (3.2-5.5); ALBUMIN/GLOBULIN RATIO 2.1 (1.0-2.2); BILIRUBIN,TOTAL 0.5 mg/dL (0.2-1.0); CALCIUM 10.3 mg/dL (8.5-10.3); CREATININE 0.5 mg/dL (0.6-1.3); POTASSIUM 3.6 mmol/L (3.5-4.5); TOTAL PROTEIN 7.1 g/dL (6.4-8.9)
[2023-08-16 15:11] LABS: HCG,QUALITATIVE BLOOD NEGATIVE
[2023-08-16] MEDS ORDERED: iohexoL-300 100 ML VIAL ONE (15:48)
--- NOTE | 2023-08-16 16:34 | CT Report ---
PROCEDURE: Soft Tissue Neck W INDICATIONS: L thyroid mass sensation/fullness, pain CONTRAST: Omni 300- 100ml TECHNIQUE: After the administration of intravenous contrast, 3.0 mm axial sections acquired from the sella to th e aortic arch. Additional oblique axial 3.0 mm sections acquired through the pharynx. 3 mm thick co phillip reformats were generated. For radiation dose reduction, the following was used: automated exp osure control, adjustment of mA and/or kV according to patient size. COMPARISON: None. FINDINGS: Image quality: Excellent. Lymph nodes: No enlarged lymph nodes seen throughout the neck. Vessels: Visualized vasculature appears patent. Neck spaces: The oropharynx, nasopharynx, and pharynx demonstrate no mucosal lesions. The vocal cor ds, false vocal cords, pyriform sinuses, epiglottis, vallecula, and tongue base all appear normal. E xtramucosal spaces appear unremarkable. Glands: The parotid and submandibular glands appear normal. The thyroid is normal in size and there are no incidental findings. Miscellaneous: Visualized brain and orbits appear normal. Lung apices appear clear. Superficial so ft tissues appear normal. Bones: No suspicious bony lesions. Visualized sinuses and mastoids appear unremarkable. IMPRESSION: No acute abnormality. Normal CT appearance of the thyroid. Reviewed by: Jose C Montenegro MD on 08/16/2023 4:33 PM PDT Approved by: Jose C Montenegro MD on 08/16/2023 4:33 PM PDT Station ID: [id number]
[2023-08-16] MEDS: iohexoL-300 100 ML VIAL IVP ONE (16:43)
[2023-08-16 17:53] VITALS: BP 96/57; O2SAT 97
== END 2023-08-16 17:57 | disposition home or self-care (01) ==
LOC: ED 14:04
DX: E86.0 Dehydration (principal); R53.83 Other fatigue; F17.200 Nicotine dependence, unspecified, uncomplicated; Z85.3 Personal history of malignant neoplasm of breast; Z79.899 Other long term (current) drug therapy
CPT/HCPCS: 36415; 70491; 80053; 83605; 83690; 84443; 84484; 84703; 85025; 93005; 96360; 96361; 99283; 99284; Q9967